=== PATIENT | male | born 1975 | race Caucasian/White ===

== ENCOUNTER 2018-04-29 11:39 | Emergency (ER) | payer OTHER, SELFPAY ==
[2018-04-29 11:43] VITALS: BP 128/86; PULSE 80; RESP 16; TEMP 36.8; O2SAT 98
--- NOTE | 2018-04-29 12:12 | DI.RAD_ITS ---
SYMPTOMS/DIAGNOSIS: PAIN S/P FALL TODAY AT 10:00, PAIN MOSTLY OVER CLAVICLE LEFT CLAVICLE: Three views. No bone or joint abnormalities identified. IMPRESSION: No acute abnormality. LEFT SHOULDER: Multiple views. No acute fracture or dislocation is seen. The soft tissues are unremarkable. IMPRESSION: No acute abnormality.
--- NOTE | 2018-04-29 12:12 | DI.CT_ITS ---
SYMPTOMS/DIAGNOSIS: FALL WITH LOSS OF CONSCIOUSNESS CT SCAN OF THE BRAIN: Noncontrast examination was performed. There are no priors for comparison. There is a normal barnes-white matter differentiation. No intracranial hemorrhage, acute infarct, midline shift or mass effect is identified. The ventricles are intact. The basilar cisterns are patent. There is opacification of the right maxillary sinus. The remaining visualized paranasal sinuses are clear. No calvarial fractures identified. The mastoid air cells are well pneumatized. IMPRESSION: 1. No acute intracranial process. 2. Opacification of the right maxillary sinus with low density material. This may represent acute sinusitis. No fractures appreciated. CT SCAN OF THE CERVICAL SPINE: Multiple contiguous axial images of the cervical spine were obtained. Sagittal and coronal reformatted images were evaluated on the Siemens workstation. There are no priors for comparison. There are no acute fractures or subluxations of the cervical spine. There are mild degenerative changes seen in the cervical spine. The bones are normally mineralized. The odontoid is intact. The lateral masses are well aligned. There is no significant prevertebral soft tissue swelling. IMPRESSION: No acute fracture or subluxation in the cervical spine. The findings were discussed with the Emergency Department on the date of the examination.
--- NOTE | 2018-04-29 13:02 | ED.GENADUL_ITS ---
Discharge Plan Disposition Patient Disposition: HOME Condition: Stable Discharge Details Chief Complaint: HeadInjury Clinical Impression: Concussion, Head injury due to trauma, Contusion of right shoulder Primary Care Provider: Kody Allen ED Provider: Christiano Parmar Home Meds and New Rx's Prescriptions: Continued ibuprofen 600 MG tablet 600 mg PO Q6H Qty: 30 RF: 0 Discharge Instructions Instructions: Concussion (ED), Head Injury (ED), Contusion in Adults (ED) Additional Instructions: It is important that you rest over the next 3 days and slowly advance activity as tolerated. If any activities cause significant headache she should refrain from those activities and go back to rest until this resolves. Return immediately to the emergency department for any altered mental status, nausea vomiting, severe or significant worsening of headache or neurological symptoms. Follow-up with your primary care provider as needed for reassess Stand Alone Forms: Work Release Referrals: Kody Allen [Primary Care Provider] - (As needed for reassessment) Discharge Data Discharge Date/Time-TO BE ENTERED AT DEPARTURE: 04/29/18 14:57 Medical Decision Making Patient presenting to the emergency department for chief complaint of head injury.. Patient reports a slip and fall and having now associated headache along with some left shoulder pain. Patient did suffer a loss of consciousness and has had intra-greater than 3 minutes of the event. Patient sedated and confused but neurologic exam is otherwise unremarkable, no signs of basal skull fracture. he does have tenderness to the left clavicle and left shoulder without deformity. Plan to perform CT imaging the head and C-spine along with xray left upper extremity. Review of radiological imaging shows no acute abnormalities within imaging of C- spine and head CT, no acute abnormalities of left clavicle or shoulder. Patient reassessed continues to remain stable. Patient educated on concussion precautions and rest along wrx for ibu Patient informed to follow-up as needed. After discussion of diagnosis and plan of care patient has no further needs, questions, or concerns and states clear understanding to return to the emergency department for any worsening symptoms. HPI General Mode of arrival: ambulatory . Date/Time Provider Initiated Documentation: 04/29/18 12:01 . Limitations to Documentation: no limitations . Information obtained by: patient, family and RN notes reviewed . History of Present Illness 42 year old M presents to the emergency department with the chief complaint of head injury, described as mild, with intensity rated at 4. Quality is described as aching, and is localized to the head. Patient reports no radiation. Patient started experiencing this hour(s) (2) and it has been constant. No relieving factors improve symptom(s), Patient notes no other symptoms.. Patient did receive the following treatments prior to arrival, none Related Data Home Medications Medication Instructions Recorded Confirmed ibuprofen 600 mg PO Q6H #30 tablet 08/11/16 04/29/18 Previous Rx's Medication Instructions Recorded ibuprofen 600 mg PO Q6H #30 tablet 08/11/16 Allergies Allergy/AdvReac Type Severity Reaction Status Date / Time cephalexin monohydrate Allergy Mild itchy Unverified 04/29/18 11:54 [From Keflex] enviornmental Allergy Mild head Uncoded 04/29/18 11:54 congestion,runny nose General Stated Complaint: HeadInjury ABDULAZIZ: 2 Review of Systems Constitutional Denies daytime sleepiness and Denies frequent falls Eyes Denies blurry vision Cardiovascular Denies syncope and Denies dyspnea Respiratory Denies dyspnea Gastrointestinal Denies nausea and Denies vomiting Musculoskeletal Reports as per HPI and Reports other (left shoulder pain) Neurologic Reports confusion, Denies syncope, Denies frequent falls, Denies seizure-like activity, Denies sensory deficit and Reports other (LOC after fall) Psychiatric Reports confusion [facility] Social History Smoking/Tobacco Use Status: Former Tobacco Use [facility] Head: no palpable skull fracture, atraumatic, no Conteh's sign, no palpable skull fracture, no raccoon eyes, no scalp tenderness and no temporal artery t enderness Ears: hearing grossly normal bilaterally and TM's normal bilaterally General nose exam: external nose normal Face and sinus: normal facial exam Mouth: oral mucosae normal, lip normal and tongue normal Throat: posterior oropharynx normal, tonsils normal and uvula midline Eyes Alignment and Position: alignment normal Periorbital: periorbital findings normal Eyelids: eyelids normal Conjunctivae: conjunctivae normal Pupils: PERRL Neck Neck: normal visual inspection, full ROM, trachea midline and supple Resp Effort & Inspection: normal respiratory effort and able to speak in complete sentences Auscultation: clear to auscultation bilaterally Cardio Rate: regular rate Rhythm: regular rhythm Heart Sounds: S1 normal and S2 normal Back/Spine/Pelvis Cervical Spine: normal cervical lordosis, collar present and cervical spinal tenderness Extrem Left upper extremity: shoulder/upper arm Details: tenderness Location: of the clavicle, of the proximal humerus and over the subacromial bursa, axillary nerve sensory function normal and abnormal ROM Details: pain with active ROM Details: in ABduction and in extension; no ecchymosis and no crepitus, elbow/forearm Details: normal to inspection and normal ROM; no tenderness and wrist Details: normal to inspection, normal ROM and radial pulse present; no tenderness Course Vital Signs Temperature 36.8 C 04/29/18 11:43 Pulse 80 04/29/18 11:43 Respiratory Rate 16 04/29/18 11:43 Blood Pressure 128/86 04/29/18 11:43 Pulse Oximetry 98 04/29/18 11:43 Temperature 36.8 C 04/29/18 11:43 Temperature Source Skin 04/29/18 11:43 Pulse 80 04/29/18 11:43 Respiratory Rate 16 04/29/18 11:43 Respiratory Effort Non-Labored 04/29/18 11:54 Respiratory Depth Normal 04/29/18 11:54 Blood Pressure 128/86 04/29/18 11:43 Blood Pressure Position Sitting 04/29/18 11:43 Pulse Oximetry 98 04/29/18 11:43 Oxygen Delivery Method Room Air 04/29/18 11:43 Oxygen Flow Rate 0 04/29/18 11:43 Pain Level 4 04/29/18 11:54
[2018-04-29 14:52] VITALS: BP 135/87; PULSE 80; RESP 18; TEMP 37; O2SAT 97
== END 2018-04-29 14:57 | disposition home or self-care (01) ==
PROVIDERS: Emergency Provider Nurse Practitioner Family; PCP Specialist/Technologist Athletic Trainer
DX: S06.0X0A Concussion without loss of consciousness, initial encounter (principal); S40.012A Contusion of left shoulder, initial encounter; W00.0XXA Fall on same level due to ice and snow, initial encounter; I10 Essential (primary) hypertension
CPT/HCPCS: 99284; 70450; 72125; 73000; 73030; L0172

== ENCOUNTER 2019-04-01 00:50 | Emergency (ER) | payer OTHER, SELFPAY ==
[2019-04-01 00:52] VITALS: BP 162/96; PULSE 86; RESP 16; TEMP 36.6; O2SAT 99
--- NOTE | 2019-04-01 01:00 | ED.GENADUL_ITS ---
Discharge Plan Disposition Patient Disposition: HOME Condition: Stable Discharge Details Chief Complaint: Orthopedic Clinical Impression: Injury of right little finger Primary Care Provider: Kody Allen ED Provider: Michael Katz Home Meds and New Rx's Prescriptions: Continued ibuprofen 600 MG tablet 600 mg PO Q6H Qty: 30 RF: 0 Discharge Instructions Additional Instructions: you have a tendon injury in the pinky call orthopedics on Wednesday for an appointment for follow up Referrals: Luis Quiroz MD [ [facility]YSICIAN] - Medical Decision Making 43 yo male comes in with right pinky pain. States it started when he slipped on ice and hit the right pinky on a truck. Did not hit head or have loc. No headache, neck pain with full rom, no chest pain or abdominal pain. Has pain over pip jinot with hyperflexion of PIP and hyperextention of DIP and MP joints suspect boutonierre injury, will xray xray shows no fx but confirms tendon injury, will d/c in splint and have him f/u with ortho Differential Diagnosis Differential Diagnosis: contusion, sprain, strain, fx Imaging Data Radiologic Study: Attestation: I personally reviewed and interpreted this imaging study as follows: Imaging: X-Ray Radiologist's impression: IMPRESSION: 1. No fracture demonstrated. 2. Extensor tendon injury suspected 5th digit. 3. Soft tissue swelling. HPI General Mode of arrival: ambulatory . Date/Time Provider Initiated Documentation: 04/01/19 00:51 . Limitations to Documentation: no limitations . Information obtained by: patient . History of Present Illness 43 year old M presents to the emergency department with the chief complaint of right pinky pain, described as moderate, Patient started experiencing this day(s) (1) No relieving factors improve symptom(s), No exacerbating factors reported . Patient did receive the following treatments prior to arrival, none Related Data Home Medications Medication Instructions Recorded Confirmed ibuprofen 600 mg PO Q6H #30 tablet 08/11/16 04/01/19 Previous Rx's Medication Instructions Recorded ibuprofen 600 mg PO Q6H #30 tablet 08/11/16 Allergies Allergy/AdvReac Type Severity Reaction Status Date / Time cephalexin monohydrate Allergy Mild itchy Unverified 04/01/19 00:55 [From Keflex] enviornmental Allergy Mild head Uncoded 04/01/19 00:55 congestion,runny nose General Stated Complaint: Orthopedic ABDULAZIZ: 4 Review of Systems All systems reviewed & are unremarkable except as noted in HPI and below Constitutional Constitutional: Denies chills, Denies fever(s) and Denies weakness Cardiovascular Cardiovascular: Denies chest pain and Denies dyspnea Respiratory Respiratory: Denies cough and Denies dyspnea Gastrointestinal Gastrointestinal: Denies abdominal pain, Denies nausea and Denies vomiting Musculoskeletal Musculoskeletal: Denies joint swelling Neurologic Neurologic: Denies weakness [facility] Social History Smoking/Tobacco Use Status: Former Tobacco Use Alcohol Intake: current Alcohol Intake frequency: holidays/special occasions only Drug use: Never Substance use type: does not use Do you feel safe at home: Yes Do you feel safe in your relationship?: Yes Exam Const General: no acute distress Orientation: alert HENMT Head: normal to inspection Ears: external ears normal General nose exam: external nose normal Mouth: moist mucous membranes Eyes General: appearance normal, both eyes and all related structures Neck Neck: normal visual inspection Resp Effort & Inspection: normal respiratory effort and able to speak in complete sentences Cardio Rate: regular rate Skin General skin exam: no rashes or lesions noted Neuro General: alert and oriented x3 Extrem General: full ROM and normal capillary refill Psych Mental Status: mental status grossly normal Course Vital Signs Vital signs: Vital Signs Temperature 36.6 C 04/01/19 00:52 Pulse 86 04/01/19 00:52 Respiratory Rate 16 04/01/19 00:52 Blood Pressure 162/96 H 04/01/19 00:52 Pulse Oximetry 99 04/01/19 00:52 Temperature 36.6 C 04/01/19 00:52 Temperature Source Temporal Artery Scan 04/01/19 00:52 Pulse 86 04/01/19 00:52 Respiratory Rate 16 04/01/19 00:52 Respiratory Effort Non-Labored 04/01/19 00:52 Blood Pressure 162/96 H 04/01/19 00:52 Blood Pressure Position Sitting 04/01/19 00:52 Pulse Oximetry 99 04/01/19 00:52 Oxygen Delivery Method Room Air 04/01/19 00:52 Oxygen Flow Rate 0 04/01/19 00:52 Pain Level 6 04/01/19 00:52
--- NOTE | 2019-04-01 01:13 | DI.RAD_ITS ---
EXAM: XR FINGER RT LITTLE INDICATION: pain s/p blunt trauma. COMPARISON: RIGHT HAND COMPLETE from 09/28/2013 TECHNIQUE: 2D digital imaging was performed. FINDINGS: No acute fracture or dislocation is seen. Finger is held in flexion at the PIP joint. Ligamentous o r tendinous injury cannot be excluded. There is soft tissue swelling of the 5th finger. 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 IMPRESSION: No acute fracture or dislocation. Findings which may represent a tendinous injury.
--- NOTE | 2019-04-01 01:37 | DI.VRAD_ITS ---
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 Views: Minimum 2 views. COMPARISON: No relevant prior studies available. FINDINGS: Bones/joints: . No fracture. 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 Status post amputation of 4th digit at level of proximal interphalangeal joint. Soft tissues: Soft tissue swelling about the 5th proximal interphalangeal joint. IMPRESSION: 1. No fracture demonstrated. 2. Extensor tendon injury suspected 5th digit. 3. Soft tissue swelling. Dictated and Authenticated by: Sunil Rodriguez MD. Ordering:HILDA Rodriguez MD
--- NOTE | 2019-04-01 02:08 | NUR.NOTE ---
splint to right 5th digit. educated on use with return demonstration.
== END 2019-04-01 02:05 | disposition home or self-care (01) ==
PROVIDERS: Emergency Provider Emergency Medicine; PCP Specialist/Technologist Athletic Trainer
DX: S56.40 Unspecified injury of extensor muscle, fascia and tendon of other and unspecified finger at forearm level (principal); W00.0XXA Fall on same level due to ice and snow, initial encounter
CPT/HCPCS: 29125; 99284; 73140; 99283

== ENCOUNTER 2020-11-30 19:18 | Emergency (ER) | payer OTHER, SELFPAY ==
--- NOTE | 2020-11-30 19:15 | DI.RAD_ITS ---
Exam(s) XR HAND RT COMPLETE EXAM: XR HAND RT COMPLETE CLINICAL HISTORY: lac 2nd mcp joint. TECHNIQUE: 2D digital imaging was performed. COMPARISON: CR,XR XR FINGER RT LITTLE from 04/01/2019 FINDINGS: BONES: No acute fracture is present. No bony destructive lesion is seen. Findings of a prior right ri ng finger amputation which are unchanged. JOINTS: No dislocation present. SOFT TISSUE: No radiopaque foreign bodies are seen. Surgical clips are seen in the soft tissues arou nd the 3rd and 4th fingers and the distal radius. There is soft tissue swelling of the index finger. No radiopaque foreign body is identified. IMPRESSION: No acute fracture or dislocation. No radiopaque foreign body. DATA REPOSITORY: RADIATION DOSE DELIVERED:
[2020-11-30 19:20] VITALS: BP 165/87; PULSE 91; RESP 18; TEMP 36.6; O2SAT 100
--- NOTE | 2020-11-30 20:08 | DI.VRAD_ITS ---
PROCEDURE INFORMATION: Exam: XR Right Hand Exam date and time: 11/30/2020 7:29 PM Age: 45 years old Clinical indication: Pain; Hand; Right; Patient HX: Lac 2nd mcp joint TECHNIQUE: Imaging protocol: XR Right hand. Views: 3 or more views. COMPARISON: CR XR FINGER RT LITTLE 04/01/2019 1:07 AM FINDINGS: Bones/joints: Unchanged findings of 4th digit amputation. No acute osseous abnormality. Soft tissues: Mild soft tissue swelling at the PIP of the 2nd digit. No radiopaque foreign body. IMPRESSION: No acute osseous abnormality Dictated and Authenticated by: Mark Bacon MD. Ordering:QUINCY Fry MD
[2020-11-30] MEDS: Lidocaine 1% Multi-Dose 50 ML VIAL (20:13)
--- NOTE | 2020-11-30 20:20 | ED.GENADUL_ITS ---
Discharge Plan Disposition Patient Disposition: HOME Condition: Stable Discharge Details Chief Complaint: Laceration Clinical Impression: Finger laceration Primary Care Provider: Kody Allen ED Provider: Ang Melgar Home Meds and New Rx's Prescriptions: No Action No Known Home Meds RF: 0 Discharge Instructions Instructions: Finger Laceration (ED) Additional Instructions: Laceration repaired without difficulty. Keep the area clean and dry, change antibiotic dressing daily, wear finger splint to avoid tearing open the laceration. [id number] Tylenol and/or Motrin as directed for discomfort. Sutures removed in approximately 7-10 days, please return to the ER or make an appoint with your primary care provider. Watch for new or worsening symptoms and return to the ER for any concerns Medical Decision Making 45-year-old gentleman sustained a laceration to his right hand on a glass that broke while cleaning it. Neuro, vascular, tendon intact. Will update tetanus status. Will obtain x-ray to rule out bony involvement or possible foreign body. Laceration will require closure X-ray read by me and confirmed by radiology as no acute abnormality Tetanus status updated Laceration repaired without difficulty. Antibiotic dressing and AlumaFoam splint applied. Patient has no additional questions or concerns. Standard discharge and return precautions given. This documentation was generated using AgentBridge dictation system, please disregard any oddities of phrase or misspellings. Medical Records Medical records reviewed: Yes I reviewed the patient's medical records. Imaging Data Radiologic Study: Attestation: I personally reviewed and interpreted this imaging study as follows: Imaging: X-Ray Radiologist's impression: PROCEDURE INFORMATION: Exam: XR Right Hand Exam date and time: 11/30/2020 7:29 PM Age: 45 years old Clinical indication: Pain; Hand; Right; Patient HX: Lac 2nd mcp joint TECHNIQUE: Imaging protocol: XR Right hand. Views: 3 or more views. COMPARISON: CR XR FINGER RT LITTLE 04/01/2019 1:07 AM FINDINGS: Bones/joints: Unchanged findings of 4th digit amputation. No acute osseous abnormality. Soft tissues: Mild soft tissue swelling at the PIP of the 2nd digit. No radiopaque foreign body. IMPRESSION: No acute osseous abnormality HPI General Mode of arrival: ambulatory . Date/Time Provider Initiated Documentation: 11/30/20 19:28 . Limitations to Documentation: no limitations . Information obtained by: patient . 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 This occurred at home around 1 or 2 PM. He denies any other injury, suspected foreign body, numbness, tingling, weakness. Patient states that he was cleaning a glass when it broke into 2 large pieces cutting his medical. Tetanus status is not up-to-date. Patient reports the pain is mild, worse with movement. Did not take any medication prior to arrival Related Data Home Medications Medication Instructions Recorded Confirmed Unknown [No Known Home Meds] 11/30/20 11/30/20 Allergies Allergy/AdvReac Type Severity Reaction Status Date / Time cephalexin monohydrate Allergy Mild itchy Unverified 11/30/20 19:26 [From Keflex] enviornmental Allergy Mild head Uncoded 11/30/20 19:26 congestion,runny nose General Stated Complaint: Laceration ABDULAZIZ: 4 Review of Systems Musculoskeletal Musculoskeletal: Denies arthralgias, Denies numbness, Denies stiffness and Den ies tingling Integumentary/Breasts Skin/Breast: Denies rash Neurologic Neurologic: Denies numbness and Denies tingling [facility] Social History Smoking/Tobacco Use Status: Former Tobacco Use Smoking risk assessment performed?: Yes Alcohol Intake: current Alcohol Intake frequency: holidays/special occasions only Drug use: Never Substance use type: does not use Do you feel safe at home: Yes Do you feel safe in your relationship?: Yes Exam Const General: cooperative, healthy appearing, comfortable and no acute distress Orientation: alert and awake [facility] Head: normal to inspection, normocephalic and atraumatic Eyes General: appearance normal, both eyes and all related structures Conjunctivae: conjunctivae normal Neck Neck: normal visual inspection, trachea midline and supple Resp Effort & Inspection: normal respiratory effort and able to speak in complete sentences Cardio Rate: regular rate Rhythm: regular rhythm Skin General skin exam: no rashes or lesions noted Neuro General: patient alert, patient awake, moves all extremities and no focal motor deficits Sensory Exam: no sensory deficits noted Extrem General: full ROM and capillary refill normal Hand/finger images: 1. 2.5 cm linear laceration, bleeding controlled. No obvious foreign body. Diffuse mild discomfort. Neuro, vascular, tendon intact. 5/5 strength. Normal capillary refill and radial pulse Psych Appearance: grossly normal Mental Status: mental status grossly normal Course Vital Signs Vital signs: Vital Signs Temperature 36.6 C 11/30/20 19:20 Pulse 91 H 11/30/20 19:20 Respiratory Rate 18 11/30/20 19:20 Blood Pressure 165/87 H 11/30/20 19:20 Pulse Oximetry 100 11/30/20 19:20 Temperature 36.6 C 11/30/20 19:20 Temperature Source Oral 11/30/20 19:20 Pulse 91 H 11/30/20 19:20 Respiratory Rate 18 11/30/20 19:20 Respiratory Effort Non-Labored 11/30/20 19:28 Blood Pressure 165/87 H 11/30/20 19:20 Blood Pressure Position Sitting 11/30/20 19:20 Pulse Oximetry 100 11/30/20 19:20 Oxygen Delivery Method Room Air 11/30/20 19:20 Oxygen Flow Rate 0 11/30/20 19:20 Pain Level 7 11/30/20 19:20 Procedures Laceration Laceration 1: Site: hand Side (If applicable): right Size (cm): 2.5 Description: linear Depth: simple, single layer Local Anesthetic: Lidocaine 1%, Bupivicaine 0.5% and other anesthetic ([id number]-duyc mixture) Amount of anesthesia used (mL): 6 Pre-repair: wound explored, irrigated extensively and deep structures intact Skin layer closed with: nylon Size (cm): 4-0 Number of sutures: 5 Technique: simple, interrupted
== END 2020-11-30 20:30 | disposition home or self-care (01) ==
PROVIDERS: Emergency Provider Physician Assistant; PCP Specialist/Technologist Athletic Trainer
DX: S61.210A Laceration without foreign body of right index finger without damage to nail, initial encounter (principal); W25.XXXA Contact with sharp glass, initial encounter
CPT/HCPCS: 12001; 29130; 90471; 99284; 73130; 99283

== ENCOUNTER 2020-12-08 11:50 | Emergency (ER) | payer OTHER, SELFPAY ==
[2020-12-08 11:57] VITALS: BP 142/92; PULSE 79; RESP 18; TEMP 36.7; O2SAT 100
--- NOTE | 2020-12-08 12:05 | ED.GENADUL_ITS ---
Discharge Plan Disposition Patient Disposition: HOME Condition: Stable Discharge Details Clinical Impression: Visit for suture removal Primary Care Provider: Kody Allen ED Provider: Ang Melgar Home Meds and New Rx's Prescriptions: No Action No Known Home Meds RF: 0 Discharge Instructions Instructions: Stitches Removal (ED) Additional Instructions: Sutures removed without difficulty. Wound appears well-healing, no signs of infection. Given this is in an area of high tension, I do believe wearing a finger splint is reasonable for the next few days to avoid tearing open the laceration. Please watch for new or worsening symptoms and return to the ER for any concerns Discharge Data Discharge Date/Time-TO BE ENTERED AT DEPARTURE: 12/08/20 12:17 Medical Decision Making 45-year-old gentleman presents for suture removal, 5 sutures placed on 11-30. He has no concerns or complaints at this time. Sutures removed without difficulty. Volar finger splint applied in the short-term to avoid excessive range of motion in order to help the laceration stay approximated. Patient has no additional questions or concerns standard discharge and return precautions given This documentation was generated using iRiseation system, please disregard any oddities of phrase or misspellings. Medical Records Medical records reviewed: Yes I reviewed the patient's medical records. HPI General Mode of arrival: ambulatory . Date/Time Provider Initiated Documentation: 12/08/20 12:00 . Limitations to Documentation: no limitations . Information obtained by: patient . HPI Narrative: This is a 45-year-old gentleman presenting for suture removal from his right hand, sutures placed last Wednesday. Patient has no additional questions or concerns. Denies fever, numbness, tingling, weakness, redness, drainage. Related Data Home Medications Medication Instructions Recorded Confirmed Unknown [No Known Home Meds] 11/30/20 11/30/20 Allergies Allergy/AdvReac Type Severity Reaction Status Date / Time cephalexin monohydrate Allergy Mild itchy Unverified 11/30/20 19:26 [From Keflex] enviornmental Allergy Mild head Uncoded 11/30/20 19:26 congestion,runny nose General Stated Complaint: SutureRem ABDULAZIZ: 4 Review of Systems Constitutional Constitutional: Denies fever(s) Musculoskeletal Musculoskeletal: Denies arthralgias, Denies numbness, Denies stiffness and Denies tingling Integumentary/Breasts Skin/Breast: Denies erythema Neurologic Neurologic: Denies numbness and Denies tingling [facility] Social History Smoking/Tobacco Use Status: Former Tobacco Use Smoking risk assessment performed?: Yes Alcohol Intake: current Alcohol Intake frequency: holidays/special occasions only Drug use: Never Substance use type: does not use Do you feel safe at home: Yes Do you feel safe in your relationship?: Yes Exam Const General: cooperative, healthy appearing, comfortable and no acute distress Orientation: alert and awake HENMT Head: normal to inspection, normocephalic and atraumatic Mouth: moist mucous membranes Eyes Conjunctivae: conjunctivae normal Neck Neck: normal visual inspection, trachea midline and supple Resp Effort & Inspection: normal respiratory effort and able to speak in complete sentences Cardio Rate: regular rate Rhythm: regular rhythm Skin General skin exam: no rashes or lesions noted Neuro General: patient alert, patient awake, moves all extremities and no focal motor deficits Sensory Exam: no sensory deficits noted Extrem Other: Right hand, second MCP joint, well approximated 2.5 similar laceration without erythema, warmth, drainage, tenderness. Neuro, vascular, tendon intact. Normal radial pulse and capillary refill. The laceration is well approximated with 5 sutures intact. Psych Appearance: grossly normal Mental Status: mental status grossly normal Course Vital Signs Vital signs: Vital Signs Temperature 36.7 C 12/08/20 11:57 Pulse 79 12/08/20 11:57 Respiratory Rate 18 12/08/20 11:57 Blood Pressure 142/92 H 12/08/20 11:57 Pulse Oximetry 100 12/08/20 11:57 Temperature 36.7 C 12/08/20 11:57 Temperature Source Tympanic 12/08/20 11:57 Pulse 79 12/08/20 11:57 Respiratory Rate 18 12/08/20 11:57 Blood Pressure 142/92 H 12/08/20 11:57 Blood Pressure Position Sitting 12/08/20 11:57 Pulse Oximetry 100 12/08/20 11:57 Oxygen Delivery Method Room Air 12/08/20 11:57 Oxygen Flow Rate 0 12/08/20 11:57
== END 2020-12-08 12:17 | disposition home or self-care (01) ==
PROVIDERS: Emergency Provider Physician Assistant; PCP Specialist/Technologist Athletic Trainer
DX: S61.411D Laceration without foreign body of right hand, subsequent encounter (principal); X58.XXXD Exposure to other specified factors, subsequent encounter; Z48.02 Encounter for removal of sutures

== ENCOUNTER 2022-03-18 03:06 | Outpatient (CLI) | payer OTHER, SELFPAY ==
[2022-03-18 11:04] LABS: Abs Immature Grans 0.03 10^3/uL (0.0-0.06); Absolute Basophil Count 0.05 10^3/uL (0.0-0.2); Absolute Eosinophil Count 0.16 10^3/uL (0.0-0.7); Absolute Lymphocyte Count 2.38 10^3/uL (1.2-3.4); Absolute Monocyte Count 0.73 10^3/uL (0.1-0.8); Absolute Neutrophil Count 4.86 10^3/uL (1.2-6.7); Basophils % 0.6; Eosinophils % 1.9; HCT 33.9 % (40.0-50.0); HGB 9.4 g/dL (13.5-17.5); Immature Grans % 0.4; MCH 19.2 pg (27.0-33.0); MCHC 27.7 % (32.0-36.0); MCV 69 fL (80-95); MPV 8.8 fL (8.0-11.0); Monocytes % 8.9; Neutrophils % 59.2; Platelet Count 389 10^3/uL (130-400); RDW 18.3 % (11.8-14.1); RDW-SD 45.2 fL; WBC 8.21 10^3/uL (4.4-10.8)
[2022-03-18 11:15] LABS: Diff Comment RBC Morph Reviewed; Hypochromasia 2+; Microcytosis 2+
[2022-03-18 11:52] LABS: ALT 39 U/L (16-63); AST 19 U/L (15-37); Albumin 3.1 g/dL (3.4-5.0); Alkaline Phosphatase 86 U/L (46-116); Anion Gap 7.1 mmol/L (3-11); BUN 17 mg/dL (7-18); Bilirubin, Total 0.3 mg/dL (0.2-1.0); CO2 25.9 mmol/L (21.0-32.0); Calcium 8.3 mg/dL (8.5-10.1); Calculated LDL 47 mg/dL (<100); Chloride 108 mmol/L (98-107); Cholesterol 86 mg/dL (<200); Estimated GFR 93.42 (mL/min/1.73m2); Glucose 121 mg/dL (74-106); HDL Cholesterol 27 mg/dL (40-60); Potassium 4.5 mmol/L (3.5-5.1); Sodium 141 mmol/L (136-145); TSH (W/Ref FT4) 1.53 uIU/mL (0.36-3.74); Total Protein 6.6 g/dL (6.4-8.2); Triglyceride 62 mg/dL (<150)
[2022-03-18 11:54] LABS: Hemoglobin A1C 6.4 % (<5.7)
[2022-03-19 08:05] LABS: Lab Add On Test DONE
[2022-03-19 08:08] LABS: Reticulocyte 1.4 % (0.5-2.4)
[2022-03-19 08:14] LABS: Iron 13 ug/dL (65-175)
[2022-03-19 08:27] LABS: Ferritin 5 ng/mL (26-388)
== END 2022-03-18 03:07 | disposition home or self-care (01) ==
PROVIDERS: PCP Nurse Practitioner Family; Visit Provider Nurse Practitioner Family
DX: G47.33 Obstructive sleep apnea (adult) (pediatric) (principal); D64.9 Anemia, unspecified
CPT/HCPCS: 36415; 80053; 80061; 82728; 83036; 83540; 84443; 85025; 85045

== ENCOUNTER 2022-04-03 11:06 | Outpatient (REF) | payer OTHER, SELFPAY ==
[2022-04-03 12:43] LABS: Reticulocyte 1.6 % (0.5-2.4)
[2022-04-03 13:23] LABS: Vitamin B12 636 pg/mL (193-986)
== END 2022-04-03 11:07 | disposition home or self-care (01) ==
LOC: LBN 11:06
PROVIDERS: PCP Nurse Practitioner Family; Visit Provider Surgery
DX: D64.9 Anemia, unspecified (principal); G47.33 Obstructive sleep apnea (adult) (pediatric); I10 Essential (primary) hypertension; K52.9 Noninfective gastroenteritis and colitis, unspecified; R73.03 Prediabetes; D50.9 Iron deficiency anemia, unspecified
CPT/HCPCS: 82607; 82746; 85045

== ENCOUNTER 2022-04-15 08:44 | Day surgery (SDC) | payer OTHER, SELFPAY ==
[2022-04-15 08:45] VITALS: BP 148/105; PULSE 84; RESP 16; TEMP 36.4; O2SAT 100
[2022-04-15] MEDS: Lactated Ringers 1,000 ML 80 ML IV (09:15)
--- NOTE | 2022-04-15 09:44 | W.ANESPRE ---
General Info Date of Service Date Performed: 04/15/22 Height: 5 ft 11 in Weight: 120.1 kg Body Mass Index (BMI): 36.9 Surgical Procedure: Operation Date: 04/15/22 10:50 Proposed Procedure Side Surgeon p Colonoscopy/Gastroscopy Kody Rojas MD Meds Allergies and Home Medications Allergies Allergy/AdvReac Type Severity Reaction Status Date / Time cephalexin monohydrate Allergy Mild itchy Unverified 04/15/22 08:57 [From Keflex] animal dander Allergy Unknown Other (See Unverified 04/15/22 08:57 Comment) house dust Allergy Unknown Other (See Unverified 04/15/22 08:57 Comment) enviornmental Allergy Mild head Uncoded 04/15/22 08:57 congestion,runny nose mold Allergy Unknown Other (See Uncoded 04/15/22 08:57 Comment) pollens Allergy Unknown Other (See Uncoded 04/15/22 08:57 Comment) tobacco smoke Allergy Unknown Other (See Uncoded 04/15/22 08:57 Comment) Home Medication Medication Instructions Recorded ibuprofen 200 mg capsule (Advil 600 mg PO Q6H PRN 12/12/21 Liqui-Gel) ferrous sulfate 325 mg (65 mg 325 mg PO BID #180 tabs 03/19/22 iron) tablet bisacodyl 5 mg tablet,delayed 5 mg PO ONCE colonscopy bowel prep 04/03/22 release (Dulcolax (bisacodyl)) #4 tabs polyethylene glycol 3350 17 238 g PO ONCE colonoscopy prep 04/03/22 gram/dose oral powder #238 grams Current Visit Medications: Current Medications Generic Name Dose Route Start Last Admin Trade Name Dawna PRN Reason Stop Dose Admin Iron Sucrose 200 mg/ Sodium 110 mls @ 440 mls/hr 04/15/22 06:00 Chloride IVPB 04/15/22 18:00 TODAY FELA Ringer's Solution 1,000 mls @ 80 mls/hr 04/15/22 06:00 04/15/22 09:15 IV 04/15/22 23:59 80 mls/hr INFUSION FELA Administration IV Miscellaneous Supplies 1 each 04/15/22 06:00 Iv Access IV 04/15/22 23:59 DIRECTED FELA Sodium Chloride 0 ml 04/15/22 06:00 Normal Saline Flush 10 Ml Syr IV 04/15/22 23:59 PRN PRN Sodium Chloride 0 ml 04/15/22 06:00 Normal Saline 10 Ml Vial IJ 04/15/22 23:59 DIRECTED PRN Sterile Water 0 ml 04/15/22 06:00 Water,Injection,Sterile 10 Ml Vial IJ 04/15/22 23:59 DIRECTED PRN PFSH Active Problems Active Problems: Problem Status Onset Code Chronic iron deficiency anemia D50.9 Chronic diarrhea K52.9 Anemia D64.9 Obstructive sleep apnea G47.33 Prediabetes R73.03 Right carpal tunnel syndrome G56.01 Left-sided sensorineural hearing loss H90.5 Medical History Medical History Hypertension Surgical History Surgical History Status post surgical amputation of finger of right hand Ring finger Tobacco Smoking/Tobacco Use Status: Former Tobacco Use Passive smoking exposure: Yes Second hand exposure: Yes Alcohol Alcohol Intake: current Alcohol intake frequency: a few times a month Alcohol type: beer Substance Use Substance use: Never Substance use type: does not use Vital Signs and Lab Results Vital Signs Most Recent Vital Signs in EMR: Most Recent Vital Signs Temp Pulse Resp BP Pulse Ox 36.4 C L 84 16 148/105 H 100 04/15/22 08:45 04/15/22 08:45 04/15/22 08:45 04/15/22 08:45 04/15/22 08:45 Lab Results Blood Type / Crossmatch: No Data to Display Complete Blood Count: White Blood Count 8.21 10^3/uL (4.4-10.8) 03/18/22 10:57 Red Blood Count 4.90 10^6/uL (4.36-5.78) 03/18/22 10:57 Hemoglobin 9.4 g/dL (13.5-17.5) L 03/18/22 10:57 Hematocrit 33.9 % (40.0-50.0) L 03/18/22 10:57 Platelet Count 389 10^3/uL (130-400) 03/18/22 10:57 Complete Metabolic Panel: Sodium 141 mmol/L (136-145) 03/18/22 10:57 Potassium 4.5 mmol/L (3.5-5.1) 03/18/22 10:57 Chloride 108 mmol/L (98-107) H 03/18/22 10:57 Carbon Dioxide 25.9 mmol/L (21.0-32.0) 03/18/22 10:57 BUN 17 mg/dL (7-18) 03/18/22 10:57 Creatinine 1.0 mg/dL (0.70-1.30) 03/18/22 10:57 Est GFR (CKD-EPI 2020) 93.42 (mL/min/1.73m2) 03/18/22 10:57 Calcium 8.3 mg/dL (8.5-10.1) L 03/18/22 10:57 Albumin 3.1 g/dL (3.4-5.0) L 03/18/22 10:57 Glucose 121 mg/dL (74-106) H 03/18/22 10:57 Hemoglobin A1c 6.4 % (<5.7) H 03/18/22 10:57 Liver Function Panel: Alanine Aminotransferase (ALT/SGPT) 39 U/L (16-63) 03/18/22 10:57 Aspartate Amino Transf (AST/SGOT) 19 U/L (15-37) 03/18/22 10:57 Coagulation Panel: No Data to Display Cardiac Panel: No Data to Display Arterial Blood Gas: No Data to Display Venous Blood Gas: No Data to Display Pancreas Panel: No Data to Display Thyroid Panel: Thyroid Stimulating Hormone (TSH) 1.53 uIU/mL (0.36-3.74) 03/18/22 10:57 Infectious Disease: No Data to Display Blood Cultures: No Data to Display Toxicology Panel: No Data to Display Anesthesia Assessment and Plan Anesthesia History Personal History: No History of Anesthesia Complications Family History: No Family History of Anesthesia Complications Exercise Tolerance Exercise Tolerance: Metabolic Equivalents>4 Pertinent Negatives Pertinent Negatives: No Symptoms of GERD, No Major Cardiovascular Symptoms or Complaints, No Major Pulmonary Symptoms or Complaints and No History of CVA/TIA Cardiac & Pulmonary Exam Cardiac Exam: Normal S1/S2 Heart Sounds Pulmonary Exam: Clear Bilateral Breath Sounds Implantable Cardiac Device Does patient have a Pacemaker or an ICD?: No Airway Exam Known Difficult Airway: No Mallampati Class: 3 Mouth Opening: Normal (> 3cm) Thyromental Distance: Greater than 3 cm Neck Range of Motion: Full ROM Neck Circumference: Normal Teeth Condition: Generalized Poor Dentition (None loose per pt. ) ASA Classification ASA Score: ASA 2 Emergency Case?: No NPO Status NPO Status: NPO Clears >2 hours, Solids >8 hours Anesthesia Plan Resuscitation Status: Full Code Anesthesia Technique: General Anesthesia Airway Planned: Natural Airway Monitors Used: Standard Monitors
[2022-04-15 10:06] VITALS: BMI 36.9
--- NOTE | 2022-04-15 10:20 | STOM_PTH ---
PATIENT: Kishor Sinha LOC: [facility] U#:[id number] AGE/SX: 46/M ROOM: RE04/15/[address]: Kody Rojas : 1975 BED: DIS: 04/15/2022 SPEC #: [id number] RECD: 04/15/22 12:55 STATUS: APOLONIA RE #: [id number] KHAI: 04/15/22 10:[address]: Kody Roajs DEPT: Surgical Specimen RECD BY: Nuzhat Boland ENTERED: 04/15/22 12:59 SP TYPE: STOMACH OTHR DR: Nita Vargas, INOCULATOR Tissues: 1 - STOMACH BIOPSY 2 - STOMACH BIOPSY 3 - STOMACH BIOPSY 4 - ESOPHAGUS BIOPSY 5 - BIOPSY BOWEL 6 - BIOPSY BOWEL Procedures: GROSS AND MICRO LEVEL 4 Comments: [id number]
--- NOTE | 2022-04-15 10:50 | COLE_ITS ---
Date of service: 04/15/22 Time of Service: 10:50 Colonoscopy Report Procedure Description: Procedures performed: 1. Colonoscopy with cold forceps biopsies Preoperative diagnosis: Anemia Postoperative diagnosis: Normal terminal ileum, normal colon, grade 1 internal hemorrhoids Surgeon: Tomas Rojas Anesthesia: Adelina Indication for procedure: 46-year-old man with anemia of unknown etiology or significance. Has not seen any bleeding. He thinks he had a colonoscopy 10 ye ars ago and did have some polyps removed but he does not remember what kind. I do not have record of this colonoscopy. He does report a family history of colon cancer in grandfather and an uncle(at a young age). Findings: Normal terminal ileum(cold forceps were taken routinely to rule out IBD -not suspected.? Normal Colon.(Small, isolated patch of mild inflammation was seen in ascending colon of unknown significance, probably mild scope trauma from entry but uncertain and I biopsied it with cold forceps technique). Mild grade 1 internal hemorrhoids seen in the rectum. No polyps anywhere. Surveillance/follow-up recommendations: Because of the family history and also the possibility of adenomatous polyps removed last time, I recommend repeating a colonoscopy in 5 years. Complications: None Blood loss: Minimal Prep: Excellent Procedure in detail: Written consent was obtained from the patient who was in agreement with the risks, benefits and indications of the procedure.? He was turned from upper endoscopy (see separate procedure note) and kept in the same position and anesthesia was continued and I started the colonoscopy portion of the procedure. Digital rectal exam and visual examination was performed and within normal limits.? A well?lubricated colonoscope was advanced without difficulty all the way to the cecum identified by the ileocecal valve, and triangular folds and appendiceal orifice.? Terminal ileum was normal.? It was then slowly withdrawn.?? Retroflexion was performed in the rectum.? The findings/interventions are noted above. The scope was then removed and the patient tolerated the procedure well and was then taken back to the PACU in hemodynamically stable condition.
[2022-04-15 10:53] VITALS: BP 105/70; PULSE 66; RESP 14; TEMP 36.3; O2SAT 97
--- NOTE | 2022-04-15 10:54 | ENDO_ITS ---
Date of service: 04/15/22 Time of Service: 10:54 Endoscopy Report PROCEDURE DESCRIPTION: Procedures performed: 1.? Esophagogastroduodenoscopy with cold forceps biopsies 2. Snare polypectomy Preoperative diagnosis: Anemia Postoperative diagnosis: Erosive gastritis, gastric polyps, moderate (2-3cm) type I sliding hiatal hernia, Mcallister's esophagus, LA grade A esophagitis Surgeon: Tomas Rojas Anesthesia: Adelina Indication for procedure: 46-year-old man with anemia of unknown etiology or significance. He does not describe any symptoms in particular. Findings: - D3, D2 and D1 - normal - no inflammation or ulcers - Pylorus - patent.? No bile reflux visualized during procedure. - Antrum - small ulceration was present here that is either healing ulcer or erosive gastritis and cold forceps biopsies were taken to assess it. Otherwise diffusely, looks mildly inflamed and with chronic appeance - biopsies taken to rule out incidental H. pylori - Stomach Body -normal?appearance - Fundus - a few scattered benign?appearing fundic polyps. 1 was removed with snare technique to confirm benign character. - Hiatus - Retroflexion showed a small/moderate type I sliding hiatal hernia (2- 3 cm slide) - Esophagus - distal esophagus has multiple strips of Mcallister's esophagus extending between 35 and 30 cm from incisors. Grade A esophagitis is present above the Mcallister's esophagus with small mucosal breaks visualized. I took multiple cold forceps biopsies from all over the Mcallister's segments. The mid and proximal esophagus is normal in appearance. - Cords/hypopharynx - Normal OVERALL - both the antrum findings as well as the hiatal hernia and the related Mcallister's esophagus could be all contributing to the anemia. Surveillance/follow-up recommendations: Patient needs a follow-up in the office to discuss pathology results, endoscopic findings and next steps in management as well as surveillance. If there is no dysplasia present (would not be surprised if some is) then PPI therapy and 3-5-year surveillance intervals would be warranted. If dysplasia is present then high?dose PPI therapy as well as referral for EMR consideration would be the next step. Initiating all of this should be done after the biopsies are reviewed with the patient. Complications: None Blood loss: Minimal Specimens:? YES Procedure in detail: Written consent was obtained from the patient who was in agreement with the risks, benefits and indications of the procedure.? We went to the endoscopy suite and laid the patient in left lateral decubitus position.? Anesthesia was administered which was tolerated well.? A timeout was performed and when we are all in agreement we began the procedure. A well?lubricated endoscope was advanced without difficulty down the esophagus, into the stomach, through a patent pylorus and into the duodenum.? It was then slowly pulled back with findings noted above. The scope was then removed and the patient tolerated the procedure well and was then turned for the colonoscopy portion of the procedure (see separate procedure note)
[2022-04-15] MEDS: IRON SUCROSE COMPLEX 200 MG in Normal Saline 100 ML 440 MG IVPB (11:23)
[2022-04-15 11:40] VITALS: BP 108/71; PULSE 69; RESP 16; TEMP 35.8; O2SAT 99
--- NOTE | 2022-04-15 11:45 | W.ANESPOSTOP ---
Postoperative Evaluation Date, Time and Location Date Performed: 04/15/22 Time Performed: 11:10 Patient Location: Day Surgery Unit Vital Signs Most Recent Imported Vital Signs: Most Recent Vital Signs Temp Pulse Resp BP Pulse Ox 36.3 C L 66 14 105/70 97 04/15/22 10:53 04/15/22 10:53 04/15/22 10:53 04/15/22 10:53 04/15/22 10:53 Pain Score Most Recent Pain Score: Most Recent Pain Score Pain Level 0 04/15/22 10:53 Assessment Mental Status: Awake (Alert & Oriented to Patient Baseline) Airway and Respiratory Function: Patent airway with normal (patient baseline) respiratory exam Cardiovascular Function: Hemodynamically Stable Hydration Status: Adequately Hydrated Nausea & Vomiting: No Nausea or Vomiting Pain: Pt. Denies Any Pain Peripheral Nerve Block: Patient did not receive a nerve block
== END 2022-04-15 12:15 | disposition home or self-care (01) ==
PROVIDERS: PCP Nurse Practitioner Family; Visit Provider Student in an Organized Health Care Education/Training Program
PROC: (CPT 43251; principal; 2022-04-15 10:45)
DX: D64.9 Anemia, unspecified (principal); K31.7 Polyp of stomach and duodenum; K29.60 Other gastritis without bleeding; K44.9 Diaphragmatic hernia without obstruction or gangrene; K20.90 Esophagitis, unspecified without bleeding; K22.70 Barrett's esophagus without dysplasia; K64.0 First degree hemorrhoids; Z80.0 Family history of malignant neoplasm of digestive organs; K22.89 Other specified disease of esophagus
CPT/HCPCS: 43251; 43239; 45378; 88305; 96365; J1756

== ENCOUNTER 2022-04-21 12:17 | Emergency (ER) | payer OTHER, SELFPAY ==
[2022-04-21 12:22] VITALS: BP 142/92; PULSE 82; RESP 18; TEMP 37.2; O2SAT 100
--- NOTE | 2022-04-21 12:30 | ED.GENADUL_ITS ---
Discharge Plan Disposition Patient Disposition: Home Condition: Good Discharge Details Chief Complaint: Cellulitis Clinical Impression: Swelling of joint, hand, right Primary Care Provider: Nita Vargas ED Provider: Erich Tijerina Home Meds and New Rx's Prescriptions: No Action ferrous sulfate 325 mg (65 mg iron) tablet 325 mg PO BID Qty: 180 3RF Rx Instructions: Take 1 tablet twice a day ibuprofen [Advil Liqui-Gel] 200 mg capsule 600 mg PO Q6H PRN Discharge Instructions Additional Instructions: At this time there is no evidence of needle or foreign body still in your hand. There is some evidence of scar tissue. You can rub it gently as needed for pain, you can also use topical Voltaren gel to help with any achiness. Otherwise this will likely resolve over the next few months. If you notice any worsening of your symptoms, or any new symptoms such as vomiting, diarrhea, fever, chills, shortness of breath, chest pain, numbness, weakness, or fainting , please return immediately to the emergency department for reevaluation. Please follow up with your primary care provider as soon as possible for reassessment and reevaluation. As always, it was a pleasure participating in your medical care today. Referrals: Nita Vargas, RAMIRO [Primary Care Provider] - Medical Decision Making 46-year-old male with a past medical history of anemia, presents today for irritation in his right hand. 1 week ago the patient had his colonoscopy, the IV was in his right hand. After this he did receive an iron infusion in that hand. He has mild irritation at that time, and has continued for the last week. He admits to a mild amount of irritation over the dorsal vessel in the hand itself, minimal minimal swelling in that area. No limitation for motion otherwise. He does have an old injury for the distal fingers on that hand, but this has been unchanged. No fever or chills. No other complaints at this time. Patient is concerned that the needle is still stuck in the vessel. Exam demonstrates a well-appearing breast on the dorsal aspect of his right hand. There is no significant swelling redness or edema. Bedside ultrasound demonstrates no evidence of clot. No evidence of foreign body. The vessel it self does appear to be slightly thickened compared to the proximal and distal aspect for the location where the patient has mild pain. I do wonder if he developed some sclerotic irritation after the iron infusion into the small vessel. This likely led to the mild irritation sensation that he still continues to have. With no evidence of clot foreign body or other abnormality I see no indication for further imaging at this time. Thank recommend topical NSAIDs as needed, ice, and close follow-up. Discussed red flags for which to return. I have extensively reviewed the treatment plan and discharge instructions with the patient. I have addressed all patient concerns at this time. The patient was made aware of what symptoms to monitor for that would warrant a return to the emergency department. Discussed the plan with the patient, they demonstrate verbal understanding and agreement with our assessment and plan at this time. The documentation in this chart was dictated using [employer] dictation software. Please excuse any dictation errors. HPI General Date/Time Provider Initiated Documentation: 04/21/22 12:30 . HPI Narrative: 46-year-old male with a past medical history of anemia, presents today for irritation in his right hand. 1 week ago the patient had his colonoscopy, the IV was in his right hand. After this he did receive an iron infusion in that hand. He has mild irritation at that time, and has continued for the last week. He admits to a mild amount of irritation over the dorsal vessel in the hand itself, minimal minimal swelling in that area. No limitation for motion otherwise. He does have an old injury for the distal fingers on that hand, but this has been unchanged. No fever or chills. No other complaints at this time. Patient is concerned that the needle is still stuck in the vessel. Related Data Home Medications Medication Instructions Recorded Confirmed ibuprofen 200 mg capsule (Advil 600 mg PO Q6H PRN 12/12/21 04/21/22 Liqui-Gel) ferrous sulfate 325 mg (65 mg 325 mg PO BID #180 tabs 03/19/22 04/21/22 iron) tablet Previous Rx's Medication Instructions Recorded ferrous sulfate 325 mg (65 mg 325 mg PO BID #180 tabs 03/19/22 iron) tablet Allergies Allergy/AdvReac Type Severity Reaction Status Date / Time cephalexin monohydrate Allergy Mild itchy Unverified 04/21/22 12:25 [From KeWiSpry] animal dander Allergy Unknown Other (See Unverified 04/21/22 12:25 Comment) house dust Allergy Unknown Other (See Unverified 04/21/22 12:25 Comment) enviornmental Allergy Mild head Uncoded 04/21/22 12:25 congestion,runny nose mold Allergy Unknown Other (See Uncoded 04/21/22 12:25 Comment) pollens Allergy Unknown Other (See Uncoded 04/21/22 12:25 Comment) tobacco smoke Allergy Unknown Other (See Uncoded 04/21/22 12:25 Comment) General Stated Complaint: Cellulitis ABDULAZIZ: 4 Review of Systems All systems reviewed & are unremarkable except as noted in HPI and below PFSH All Active Problems Swelling of joint, hand, right (Acute) Chronic iron deficiency anemia (Acute) Chronic diarrhea (Chronic) Anemia (Chronic) Obstructive sleep apnea (Chronic) Declines CPAP Prediabetes (Chronic) Right carpal tunnel syndrome (Acute) Left-sided sensorineural hearing loss (Chronic) Medical History Hypertension Surgical History 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 Son No problems noted. Maternal Grandfather , 69 Colon cancer Metastasized to liver Maternal Grandmother No problems noted. Paternal Grandfather , No problems noted. Paternal Grandmother Diabetes Social History Smoking/Tobacco Use Status: Former Tobacco Use tobacco type: cigarettes Quit D ate: 04/05/02 Tobacco: How many years used: 6 Second Hand Exposure: Yes Smoking risk assessment performed?: Yes Alcohol Intake: current Alcohol Intake frequency: a few times a month Alcohol type: beer Drug use: Never Substance use type: does not use Caregiver/Support person: No Household members: spouse, family and children Housing: house Communication Needs: None and Corrective Lenses Do you need help understanding health information?: Rarely Pets and animals: Yes Pets and animals: dog(s) Sexually active: Yes Do you think of yourself as: straight/heterosexual Current gender identity: male What is your relationship status?: How often do you talk on the phone with friends or family?: decline to answer How often do you get together with friends or relatives?: decline to answer How often do you attend amish or mormonism services?: decline to answer Do you belong to any clubs or organized social groups?: no Panel score (0-1 are the most socially isolated patients): 1 What type of physical activity do you participate in: walking Duration: 15-30 minutes/day Frequency: daily Bobbi/Church: Zoro[employer] Special bobbi needs: No Seatbelt use: sometimes Helmet use: Yes Helmet use: sometimes Drive intox or ride w/intox drop hammer pile driver operator: No Do you feel safe at home: Yes Do you feel safe in your relationship?: Yes Exam Narrative Exam Narrative: 1.Const: Well-nourished, Well-developed, appearing stated age 2.Eyes: PERRL, no conjunctival injection, and symmetrical lids. 3.ENT: Atraumatic external nose and ears. Moist MM. Neck: Symmetric, trachea midline, No thyromegaly. 4.CVS: +S1/S2, No murmurs or gallops. Peripheral pulses 2+ and equal in all extremities. Brisk capillary refill in all extremities. 5.RESP: Unlabored respiratory effort. Clear to auscultation bilaterally. No wheezes rales or rhonchi 6.GI: Soft, Nontender/Nondistended, No hepatosplenomegaly. No guarding or rebound. 7.MSK: Normocephalic/Atraumatic, Extremities w/o deformity or ttp No cyanosis or clubbing, Normal movement of all extremities, evaluation of the right hand over the superficial vein on the dorsal aspect demonstrates no significant redness, swelling, or other abnormalities. Bedside ultrasound demonstrates no evidence of retained foreign body. There does appear to be a small amount of thickening and scar tissue of the vessel itself compared to the other superficial vessels, as well as the proximal and distal assessment, no blood clots or DVT. No other abnormalities. 8.Skin: Warm, Dry. No rashes or lesions. 9.Neuro: buttonholer II-XII grossly intact. Sensation grossly intact, no focal neurologic deficits. 10.Psych: (AAO) x3. Appropriate mood and affect Course Vital Signs Vital signs: Vital Signs Temperature 37.2 C 04/21/22 12:22 Pulse 82 04/21/22 12:22 Respiratory Rate 18 04/21/22 12:22 Blood Pressure 142/92 H 04/21/22 12:22 Pulse Oximetry 100 04/21/22 12:22 Temperature 37.2 C 04/21/22 12:22 Temperature Source Skin 04/21/22 12:22 Pulse 82 04/21/22 12:22 Respiratory Rate 18 04/21/22 12:22 Respiratory Effort Non-Labored 04/21/22 12:26 Blood Pressure 142/92 H 04/21/22 12:22 Blood Pressure Position Supine 04/21/22 12:22 Pulse Oximetry 100 04/21/22 12:22 Oxygen Delivery Method Room Air 04/21/22 12:22 Oxygen Flow Rate 0 04/21/22 12:22 Pain Level 5 04/21/22 12:22
== END 2022-04-21 12:39 | disposition home or self-care (01) ==
PROVIDERS: Emergency Provider Student in an Organized Health Care Education/Training Program; PCP Nurse Practitioner Family
DX: M25.441 Effusion, right hand (principal)
CPT/HCPCS: 99283

== ENCOUNTER 2022-06-09 16:36 | Outpatient (CLI) | payer OTHER, SELFPAY ==
[2022-06-09 08:27] LABS: Abs Immature Grans 0.01 10^3/uL (0.0-0.06); Absolute Basophil Count 0.05 10^3/uL (0.0-0.2); Absolute Eosinophil Count 0.18 10^3/uL (0.0-0.7); Absolute Lymphocyte Count 2.32 10^3/uL (1.2-3.4); Absolute Monocyte Count 0.92 10^3/uL (0.1-0.8); Basophils % 0.7; Eosinophils % 2.5; HCT 39.3 % (40.0-50.0); HGB 11.9 g/dL (13.5-17.5); Immature Grans % 0.1; Lymphocytes % 31.9; MCH 22.8 pg (27.0-33.0); MCHC 30.3 % (32.0-36.0); MCV 75 fL (80-95); MPV 9.5 fL (8.0-11.0); Monocytes % 12.6; Neutrophils % 52.2; RBC 5.21 10^6/uL (4.36-5.78); RDW 21.2 % (11.8-14.1); RDW-SD 56.6 fL; WBC 7.28 10^3/uL (4.4-10.8)
[2022-06-09 08:59] LABS: Hemoglobin A1C 5.9 % (<5.7)
[2022-06-09 09:04] LABS: Anisocytosis 1+; Diff Comment Diff Reviewed; Platelet Count 278 10^3/uL (130-400)
[2022-06-09 09:07] LABS: Ferritin 8 ng/mL (26-388); Folate 9.4 ng/mL (8.6-20.0); Vitamin B12 644 pg/mL (193-986)
== END 2022-06-09 16:37 | disposition home or self-care (01) ==
LOC: LBO 16:37
PROVIDERS: PCP Nurse Practitioner Family; Visit Provider Surgery
DX: R73.03 Prediabetes (principal); D50.9 Iron deficiency anemia, unspecified; D52.9 Folate deficiency anemia, unspecified; G47.33 Obstructive sleep apnea (adult) (pediatric); H90.5 Unspecified sensorineural hearing loss; I10 Essential (primary) hypertension; K22.70 Barrett's esophagus without dysplasia; K25.9 Gastric ulcer, unspecified as acute or chronic, without hemorrhage or perforation; K52.9 Noninfective gastroenteritis and colitis, unspecified
CPT/HCPCS: 36415; 82607; 82728; 82746; 83036; 85025

== ENCOUNTER 2022-09-21 11:31 | Outpatient (REF) | payer OTHER, SELFPAY ==
[2022-09-21 13:45] LABS: Abs Immature Grans 0.03 10^3/uL (0.0-0.06); Absolute Basophil Count 0.04 10^3/uL (0.0-0.2); Absolute Eosinophil Count 0.19 10^3/uL (0.0-0.7); Absolute Lymphocyte Count 2.09 10^3/uL (1.2-3.4); Absolute Monocyte Count 0.71 10^3/uL (0.1-0.8); Absolute Neutrophil Count 3.65 10^3/uL (1.2-6.7); Basophils % 0.6; Eosinophils % 2.8; HCT 43.9 % (40.0-50.0); HGB 14.1 g/dL (13.5-17.5); Immature Grans % 0.4; Lymphocytes % 31.1; MCH 25.6 pg (27.0-33.0); MCHC 32.1 % (32.0-36.0); MCV 80 fL (80-95); MPV 10.5 fL (8.0-11.0); Monocytes % 10.6; Neutrophils % 54.5; Platelet Count 286 10^3/uL (130-400); RBC 5.51 10^6/uL (4.36-5.78); RDW 16.9 % (11.8-14.1); RDW-SD 48.9 fL; WBC 6.71 10^3/uL (4.4-10.8)
[2022-09-21 14:14] LABS: Iron 46 ug/dL (65-175); Total Iron Binding Capacity 458 ug/dL (250-450); Transferrin Sat 10 % (20-55)
[2022-09-21 14:39] LABS: Ferritin 15 ng/mL (26-388); Folate 14.4 ng/mL (8.6-20.0); Vitamin B12 563 pg/mL (193-986)
== END 2022-09-21 11:32 | disposition home or self-care (01) ==
LOC: LBN 11:31
PROVIDERS: PCP Nurse Practitioner Family; Visit Provider Surgery
DX: D50.9 Iron deficiency anemia, unspecified (principal); G47.33 Obstructive sleep apnea (adult) (pediatric); K22.70 Barrett's esophagus without dysplasia; K25.9 Gastric ulcer, unspecified as acute or chronic, without hemorrhage or perforation; K64.8 Other hemorrhoids; R73.03 Prediabetes; C50.929 Malignant neoplasm of unspecified site of unspecified male breast
CPT/HCPCS: 82607; 82728; 82746; 83540; 83550; 85025

== ENCOUNTER 2023-06-07 05:22 | Outpatient (CLI) | payer OTHER, SELFPAY ==
[2023-06-07 14:29] LABS: Abs Immature Grans 0.05 10^3/uL (0.0-0.06); Absolute Basophil Count 0.04 10^3/uL (0.0-0.2); Absolute Eosinophil Count 0.23 10^3/uL (0.0-0.7); Absolute Lymphocyte Count 2.63 10^3/uL (1.2-3.4); Absolute Monocyte Count 0.48 10^3/uL (0.1-0.8); Absolute Neutrophil Count 4.68 10^3/uL (1.2-6.7); Basophils % 0.5; Eosinophils % 2.8; HCT 45.8 % (40.0-50.0); HGB 15.2 g/dL (13.5-17.5); Immature Grans % 0.6; Lymphocytes % 32.4; MCH 28.4 pg (27.0-33.0); MCHC 33.2 % (32.0-36.0); MCV 86 fL (80-95); MPV 9.1 fL (8.0-11.0); Monocytes % 5.9; Neutrophils % 57.8; Platelet Count 253 10^3/uL (130-400); RBC 5.35 10^6/uL (4.36-5.78); RDW 13.2 % (11.8-14.1); WBC 8.11 10^3/uL (4.4-10.8)
[2023-06-07 14:40] LABS: Hemoglobin A1C 5.8 % (<5.7)
[2023-06-07 15:31] LABS: ALT 62 U/L (16-63); AST 31 U/L (15-37); Albumin 3.5 g/dL (3.4-5.0); Alkaline Phosphatase 90 U/L (46-116); Anion Gap 9.4 mmol/L (3-11); BUN 21 mg/dL (7-18); Bilirubin, Total 0.5 mg/dL (0.2-1.0); CO2 26.6 mmol/L (21.0-32.0); CREATININE 1.2 mg/dL (0.70-1.30); Calcium 8.6 mg/dL (8.5-10.1); Calculated LDL 55 mg/dL (<100); Chloride 105 mmol/L (98-107); Cholesterol 124 mg/dL (<200); Ferritin 68 ng/mL (26-388); Folate 8.4 ng/mL (8.6-20.0); Glucose 107 mg/dL (74-106); HDL Cholesterol 31 mg/dL (40-60); Potassium 4.3 mmol/L (3.5-5.1); Sodium 141 mmol/L (136-145); Total Protein 7.1 g/dL (6.4-8.2); Triglyceride 194 mg/dL (<150); Vitamin B12 796 pg/mL (193-986)
[2023-06-07 16:27] LABS: Iron 72 ug/dL (65-175); Total Iron Binding Capacity 386 ug/dL (250-450)
[2023-06-08 13:14] LABS: Transferrin 291 mg/dL (201-352)
== END 2023-06-07 05:23 | disposition home or self-care (01) ==
LOC: LBO 05:22
PROVIDERS: PCP Nurse Practitioner Family; Visit Provider Nurse Practitioner Family
DX: Z00.00 Encounter for general adult medical examination without abnormal findings (principal)
CPT/HCPCS: 36415; 80053; 80061; 82607; 82728; 82746; 83036; 83540; 83550; 84466; 85025

== ENCOUNTER 2023-09-28 03:14 | Outpatient (CLI) | payer OTHER, SELFPAY ==
[2023-09-28 12:47] LABS: HGB 15.7 g/dL (13.5-17.5); MCH 29.3 pg (27.0-33.0); MCHC 33.4 % (32.0-36.0); MCV 88 fL (80-95); MPV 9.3 fL (8.0-11.0); Platelet Count 251 10^3/uL (130-400); RBC 5.36 10^6/uL (4.36-5.78); RDW 12.8 % (11.8-14.1); RDW-SD 41.2 fL; WBC 7.86 10^3/uL (4.4-10.8)
[2023-09-28 13:51] LABS: Anion Gap 8.6 mmol/L (3-11); BUN 18 mg/dL (7-18); CO2 27.4 mmol/L (21.0-32.0); Calcium 8.7 mg/dL (8.5-10.1); Chloride 107 mmol/L (98-107); Estimated GFR 92.84 (mL/min/1.73m2); Ferritin 91 ng/mL (26-388); Glucose 96 mg/dL (74-106); Potassium 4.3 mmol/L (3.5-5.1); Sodium 143 mmol/L (136-145)
[2023-09-28 13:53] LABS: Folate > 20.0 ng/mL (8.6-20.0)
[2023-09-29 09:02] LABS: Hepatitis C Ab w Rflx HCV PCR Negative (Negative)
[2023-09-29 09:10] LABS: HIV-1/2 Ag & Ab Screen Negative (Negative)
[2023-09-29 09:12] LABS: HBs Antibody, Quant <3.1 mIU/mL (See Note); Hep B Surface Ab Negative (See Note); Hepatitis B Core Antibody Negative (Negative); Hepatitis B Surface Antigen Negative (Negative)
== END 2023-09-28 03:15 | disposition home or self-care (01) ==
LOC: LBO 03:14
PROVIDERS: PCP Nurse Practitioner Family; Visit Provider Nurse Practitioner Family
DX: I10 Essential (primary) hypertension (principal); Z11.59 Encounter for screening for other viral diseases; E53.8 Deficiency of other specified B group vitamins; D50.9 Iron deficiency anemia, unspecified; Z11.4 Encounter for screening for human immunodeficiency virus [HIV]
CPT/HCPCS: 36415; 80048; 85027; 86704; 86706; 86803; 87340; 87389; 82728; 82746

== ENCOUNTER 2024-07-07 00:59 | Outpatient (CLI) | payer OTHER, SELFPAY ==
[2024-07-07 10:47] LABS: HCT 46.5 % (40.0-50.0); HGB 15.4 g/dL (13.5-17.5); MCH 29.4 pg (27.0-33.0); MCHC 33.1 % (32.0-36.0); MCV 89 fL (80-95); MPV 9.2 fL (8.0-11.0); Platelet Count 250 10^3/uL (130-400); RBC 5.23 10^6/uL (4.36-5.78); RDW 13.2 % (11.8-14.1); RDW-SD 42.5 fL; WBC 8.41 10^3/uL (4.4-10.8)
[2024-07-07 11:42] LABS: Anion Gap 8.8 mmol/L (3-11); BUN 18 mg/dL (7-18); CO2 27.2 mmol/L (21.0-32.0); CREATININE 0.9 mg/dL (0.70-1.30); Calcium 8.8 mg/dL (8.5-10.1); Chloride 108 mmol/L (98-107); Ferritin 99 ng/mL (26-388); Glucose 101 mg/dL (74-106); Potassium 4.4 mmol/L (3.5-5.1); Sodium 144 mmol/L (136-145); Vitamin B12 620 pg/mL (193-986)
[2024-07-07 11:44] LABS: Folate > 20.0 ng/mL (8.6-20.0)
== END 2024-07-07 01:00 | disposition home or self-care (01) ==
PROVIDERS: PCP Nurse Practitioner Family; Visit Provider Nurse Practitioner Family
DX: D50.9 Iron deficiency anemia, unspecified (principal); E53.8 Deficiency of other specified B group vitamins; I10 Essential (primary) hypertension
CPT/HCPCS: 36415; 80048; 85027; 82607; 82728; 82746

== ENCOUNTER 2024-10-08 19:39 | Emergency (ER) | payer OTHER, SELFPAY ==
[2024-10-08 19:48] VITALS: BP 150/105; PULSE 87; RESP 16; TEMP 36.8; O2SAT 97
--- NOTE | 2024-10-08 19:48 | W.ED.GENAD ---
Discharge Plan Disposition Patient Disposition: Home Discharge Details Clinical Impression: Immunization, tetanus-diphtheria, Closed fracture of distal phalanx of right thumb Primary Care Provider: Nita Vargas ED Provider: Fred Tobar Home Meds and New Rx's Prescriptions: Continued multivitamin [Daily Multi-Vitamin] Tablet 1 tab PO DAILY ibuprofen [Advil Liqui-Gel] 200 mg capsule 600 mg PO Q6H PRN lansoprazole [Prevacid] 30 mg capsule,delayed release(DR/EC) 30 mg PO DAILY Qty: 90 3RF vitamin B complex [Vitamins B Complex] Tablet See Rx Instructions .ROUTE .COMPLEX Qty: 90 6RF Dose Instruction: TAKE ONE TABLET BY MOUTH EVERY DAY Rx Instructions: TAKE ONE TABLET BY MOUTH EVERY DAY lisinopril 10 mg tablet 10 mg PO DAILY Qty: 90 3RF loratadine [Claritin] 10 mg tablet 10 mg PO DAILY Discharge Instructions Instructions: Finger fracture Additional Instructions: You are seen in the emergency department for your right thumb pain. You are found to have a fracture. Please wear the splint while you are awake. You may take it off to wash your thumb. Please limit your activities in your right hand. Please return if you develop worsening pain. Please follow-up with orthopedic team in 2 to 4 weeks. Stand Alone Forms: Work Release Referrals: [facility] [Provider Group] Clinical Impression: Closed fracture of distal phalanx of right thumb HPI General Date/Time Provider Initiated Documentation: 10/08/24 19:47. HPI Narrative: MDM Primary survey intact. Reassuring shock index. Secondary survey patient has right thumb ecchymosis and x-ray consistent with closed distal tuft fracture for which patient was placed in an AlumaFoam splint after reviewing the case with Dr. Qurioz. I asked health community development aide Candace to have the patient seen in the next 2 weeks by the orthopedic team. I provided the patient with a work note and advised that he limit his activities in his right hand. He initially had a dressing to his left elbow for an abrasion to his left elbow. His abrasion was relatively superficial. Nonetheless I updated his tetanus status. He had no midline cervical spinal tenderness nor any trauma to his head to suggest cervical spinal fracture so I did not feel he required a CAT scan. He did not hit his head no indication for CT head. Equal breath sounds and no trauma to chest or shortness of breath so my suspicion was low for pneumothorax. Patient I discussed that he should return for any worsening pain in any nausea or vomiting that did not stop or any other concerns. He was discharged with an empiric trial of expectant outpatient management. He had no signs of any nailbed lacerations that would require repair. He had no signs of a subungual hematoma that would require drainage. He had intact range of motion in his right thumb so I was not suspicious for any ligamentous injury. HPI The patient presents for evaluation of a fall. He experienced a fall from a tailgate last night, during which he did not sustain any head injuries. He reports no neck or back pain. The primary discomfort is in his right thumb, which was swollen and immobile last night. He had applied a finger brace for support but removed it this morning. He also has a minor abrasion on his left elbow, which does not impede his movement. He underwent a remote right ring finger amputation. Exam General: Well-appearing in no acute distress speaking in complete sentences. Head: Normocephalic, atraumatic. Eye: Extraocular eye movements intact. No conjunctival injection. No scleral icterus. Ear, nose, mouth, throat: Grossly normal inspection. Normal voice, handling secretions normally. Neck: Trachea midline. No midline cervical spinal tenderness Cardiovascular: Well-perfused distal extremities. Regular rate and rhythm Respiratory: Nonlabored respiration. Clear lungs bilaterally Gastrointestinal: Nondistended abdomen. Musculoskeletal: Right thumb with ecchymosis. No lacerations. No subungual hematoma. Patient has full range of motion right thumb. He can fully flex and extend at the MCP and IP joints. He can fully abduct and adduct. He can oppose. Cap refill less than 2 seconds right fingertips. 2+ radial pulse. Skin: Normal for age and race, grossly normal temperature and turgor. No acute rash. Neurologic: Alert and appropriate, no apparent acute deficits. GCS 15. Psychiatric: Mood and manner are appropriate. Grooming and personal hygiene are appropriate. Related Data Home Medications ?Medication ?Instructions ?Recorded ?Confirmed ibuprofen 200 mg capsule (Advil 600 mg PO Q6H PRN 12/12/21 10/08/24 Liqui-Gel) lansoprazole 30 mg capsule,delayed 30 mg PO DAILY #90 caps 01/13/24 10/08/24 release (Prevacid) vitamin B complex (Vitamins B See Rx Instructions .Route 04/29/24 10/08/24 Complex tablet) .COMPLEX #90 tabs lisinopril 10 mg tablet 10 mg PO DAILY #90 tabs 05/29/24 10/08/24 multivitamin (Daily Multi-Vitamin 1 tab PO DAILY 06/07/24 10/08/24 tablet) loratadine 10 mg tablet (Claritin) 10 mg PO DAILY 10/08/24 10/08/24 Previous Rx's ?Medication ?Instructions ?Recorded lansoprazole 30 mg capsule,delayed 30 mg PO DAILY #90 caps 01/13/24 release (Prevacid) vitamin B complex (Vitamins B See Rx Instructions .Route 04/29/24 Complex tablet) .COMPLEX #90 tabs lisinopril 10 mg tablet 10 mg PO DAILY #90 tabs 05/29/24 Allergies Allergy/AdvReac Type Severity Reaction Status Date / Time cephalexin monohydrate (From Allergy Mild itchy Unverified 10/08/24 19:57 Keflex) animal dander Allergy Unknown Other (See Unverified 10/08/24 19:57 Comment) house dust Allergy Unknown Other (See Unverified 10/08/24 19:57 Comment) enviornmental Allergy Mild head Uncoded 10/08/24 19:57 congestion,runny nose mold Allergy Unknown Other (See Uncoded 10/08/24 19:57 Comment) pollens Allergy Unknown Other (See Uncoded 10/08/24 19:57 Comment) tobacco smoke Allergy Unknown Other (See Uncoded 10/08/24 19:57 Comment) General ABDULAZIZ: 4 Medical Decision Making Quality:SDOH Health Related Social Needs: Health related social needs inadequate housing PFSH All Active Problems (Updated 10/08/24 @ 21:44 by Fred Tobar MD) Closed fracture of distal phalanx of right thumb (Acute) Immunization, tetanus-diphtheria (Acute) Obstructive sleep apnea (Chronic) Declines CPAP Hypertension (Chronic) 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 (Chronic) GERD with esophagitis (Chronic) Hiatal hernia (Chronic) Prediabetes (Chronic) Right carpal tunnel syndrome (Chronic) Left-sided sensorineural hearing loss (Chronic) Internal hemorrhoids without complication (Chronic) Obesity, Class III, BMI 40-49.9 (morbid obesity) (Chronic) Medical History Folate deficiency Iron deficiency anemia Gastric ulcer Surgical History History of esophagogastroduodenoscopy (EGD) (04/15/22) History of colonoscopy with polypectomy (04/15/22) 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 Maternal Grandfather , 69 Colon cancer Metastasized to liver Maternal Grandmother , 95 06/06/24 No problems noted. Paternal Grandfather , No problems noted. Paternal Grandmother Diabetes Social History (Updated 06/07/24 @ 14:24 by Poornima Loredo) Smoking/Tobacco Use Status: Former Tobacco Use tobacco type: cigarettes Quit Date: 01/03/02 Pack-years: 6 Tobacco: How many years used: 6 Second Hand Exposure: Yes Smoking risk assessment performed?: Yes Alcohol Intake: current Alcohol Intake frequency: holidays/special occasions only Alcohol type: beer and hard liquor Details: 6 or more drinks monthly or less Drug use: Never Substance use type: does not use Adopted: No Caregiver/Support person: No Household members: spouse, family and children Housing: house Number of Children: 2 Communication Needs: Corrective Lenses Education Level: high school Do you need help understanding health information?: Rarely current occupation: shoe sewing machine operator and tender Pets and animals: Yes Pets and animals: dog(s) Sexually active: Yes Do you think of yourself as: straight/heterosexual Current gender identity: male What is your relationship status?: How often do you talk on the phone with friends or family?: once per week How often do you get together with friends or relatives?: once per week How often do you attend tenriism or hoahaoism services?: decline to answer Do you belong to any clubs or organized social groups?: no Panel score (0-1 are the most socially isolated patients): 1 What type of physical activity do you participate in: walking Duration: 15-30 minutes/day Frequency: daily Bobbi/Restorationism: [employer] Special bobbi needs: No Seatbelt use: sometimes Helmet use: Yes Helmet use: sometimes Drive intox or ride w/intox skip load driver: No Firearms in home: Yes Firearms unloaded and locked: Yes Do you feel safe at home: Yes Do you feel safe in your relationship?: Yes Victim of physical abuse: No Victim of emotional abuse: No Victim of sexual abuse: No Would you like helpful sources: No
[2024-10-08] MEDS: Diph,Pertuss(Acell),Tet Vac/Pf 0.5 ML SYR IM (19:57)
--- NOTE | 2024-10-08 20:16 | DI.RAD_ITS ---
Exam(s) XR THUMB RT EXAM: XR THUMB RT CLINICAL HISTORY: Right thumb pain. TECHNIQUE: 2D digital imaging was performed. COMPARISON: CR,XR XR HAND RT COMPLETE from 11/30/2020 FINDINGS: 3 views There is a nondisplaced fracture in the proximal half of the distal phalanx of the thumb. This approaches but does not obviously involve the interphalangeal joint surface. No radiopaque foreign bodies. The proximal phalanx of the thumb appears unremarkable as does the thumb metacarpal. Incidentally noted is amputation of part of the 4th-ring finger, similar to previous. In addition, there is significant abnormal widening of the scapholunate distance in the proximal carpal bone row. This implies complete disruption of the interosseous ligament at this level. IMPRESSION: There is nondisplaced fracture of the distal phalanx of the thumb as described above. Other findings incidentally noted in the wrist as above. DATA REPOSITORY: RADIATION DOSE DELIVERED:
--- NOTE | 2024-10-08 21:19 | DI.[facility]_ITS ---
PROCEDURE INFORMATION: Exam: XR Right Finger(s) Exam date and time: 10/08/2024 8:14 PM Age: 49 years old Clinical indication: Pain; Finger(s); Right; Prior surgery; Surgery date: 6+ months; Surgery type: Amputation of ring finger seen on full hand image TECHNIQUE: Imaging protocol: Radiologic exam of the right fingers. Views: Minimum 2 views. COMPARISON: CR XR HAND RT COMPLETE 11/30/2020 7:50 PM FINDINGS: Bones/joints: A PA view of the right hand is submitted with coned-down oblique and lateral views of the right thumb. There is a comminuted acute nondisplaced fracture through the proximal aspect of the distal phalanx of the thumb. There has been prior amputation of the 4th digit through the distal shaft of the proximal phalanx. There are adjacent surgical clips. There are also surgical clips projecting over the distal forearm. No additional acute fracture is seen. Soft tissues: There is apparent soft tissue swelling in the thumb. IMPRESSION: 1. Comminuted acute essentially nondisplaced fracture through the proximal aspect of the distal phalanx of the right thumb. 2. Prior amputation of the 4th right finger. Dictated and Authenticated by: Seamus Nguyen MD. Orderin Amadou Ibarra MD
== END 2024-10-08 21:51 | disposition home or self-care (01) ==
PROVIDERS: Emergency Provider Emergency Medicine; PCP Nurse Practitioner Family
DX: S62.514A Nondisplaced fracture of proximal phalanx of right thumb, initial encounter for closed fracture (principal); I10 Essential (primary) hypertension; Z23 Encounter for immunization; W17.89XA Other fall from one level to another, initial encounter; Y92.89 Other specified places as the place of occurrence of the external cause
CPT/HCPCS: 90471; 90715; 99283; 73140

== ENCOUNTER 2024-12-05 10:23 | Outpatient (CLI) | payer OTHER, SELFPAY ==
--- NOTE | 2024-12-05 08:15 | DI.RAD_ITS ---
Exam(s) XR THUMB RT EXAM: XR THUMB RT INDICATION: F/U FRACTURE. COMPARISON: CR,XR XR THUMB RT from 10/08/2024 TECHNIQUE: 2D digital imaging was performed. Two views. FINDINGS: Stable alignment fracture of the distal phalanx which shows some increased callus formation. No new abnormalities. The preliminary [facility] report was reviewed. DATA REPOSITORY: RADIATION DOSE DELIVERED:
== END 2024-12-05 10:24 | disposition home or self-care (01) ==
LOC: DIORS 10:23
PROVIDERS: PCP Nurse Practitioner Family; Visit Provider Student in an Organized Health Care Education/Training Program
DX: S62.521A Displaced fracture of distal phalanx of right thumb, initial encounter for closed fracture (principal)
CPT/HCPCS: 73140

== ENCOUNTER 2025-02-06 08:50 | Outpatient (CLI) | payer OTHER, SELFPAY ==
--- NOTE | 2025-02-06 08:18 | DI.RAD_ITS ---
Exam(s) XR THUMB RT EXAM: XR THUMB RT CLINICAL HISTORY: F/U THUMB. TECHNIQUE: 2D digital imaging was performed of the right finger. Two views were obtained. PA/AP and lateral views were obtained. COMPARISON: CR XR THUMB RT from 12/05/2024 FINDINGS: BONES: There has been no change in alignment of the fracture of the distal phalanx of the right thumb. There does appear to be a small section of the fracture line still present. There is no new fracture. No bony destructive lesion is seen. JOINTS: No dislocation present. SOFT TISSUE: Normal. IMPRESSION: Nearly completely healed fracture of the distal phalanx of the right thumb. DATA REPOSITORY: RADIATION DOSE DELIVERED:
== END 2025-02-06 08:51 | disposition home or self-care (01) ==
LOC: DIORS 08:50
PROVIDERS: PCP Nurse Practitioner Family; Visit Provider Student in an Organized Health Care Education/Training Program
DX: S62.521A Displaced fracture of distal phalanx of right thumb, initial encounter for closed fracture (principal)
CPT/HCPCS: 73140